=== PATIENT | male | born 1955 | race African-American/Black ===

== ENCOUNTER 2017-12-10 11:42 | Emergency (ER) | payer OTHER ==
[~2017-12-10] VITALS: Ht 195.6 cm; Wt 150.0 kg
[2017-12-10 11:47] VITALS: BP 169/79; PULSE 82; RESP 20; TEMP 97.8; O2SAT 99
--- NOTE | 2017-12-10 12:30 | PD ---
HPI Chief Complaint: Pain: Acute or Chronic Time Seen by Provider: 12:23 Travel History International Travel<30 days: No Contact w/Intl Traveler<30days: No Traveled to known affect area: No History of Present Illness HPI Patient comes in complaining of cough, short of breath for the last 4 days not improving despite increasing of his Lasix by his primary care physician. Currently states no alleviating factors, does state that his symptoms have worsened whenever he did lays completely on his back. Primary CARE physician Dr. Fernández, director of midwifery/staff midwife Dr. Bhatia Past medical history significant for cardiomyopathy with a 19% cardiac function , uses an external defibrillator. PFSH Past Medical History Cardiovascular Problems: Yes Respiratory: Yes Social History Tobacco Use: No Allergies-Medications (Allergen,Severity, Reaction): Coded Allergies: No Known Allergies (Unverified , 12/10/17) Reported Meds & Prescriptions Reported Meds & Active Scripts Active Proventil Hfa 6.7 GM Inh (Albuterol Sulfate) 90 Mcg/Act Aer 2 Puff INH Q4-6H PRN Zithromax Z-Carter (Azithromycin) 250 Mg Dspk 250 Mg PO DIRECTED 500 MG (2 tabs) day 1, then 1 tab days 2-5. Medrol Dosepak (Methylprednisolone) 4 Mg Dspk 4 Mg PO DIRECTED Per Pharmacist direction Reported Potassium Chloride ER (Potassium Chloride) 10 Meq Tab 10 Meq PO DAILY Lasix (Furosemide) 20 Mg Tab 20 Mg PO DAILY Carvedilol 12.5 Mg Tab 12.5 Mg PO BID Losartan (Losartan Potassium) 25 Mg Tab 25 Mg PO DAILY Spironolactone 25 Mg Tab 25 Mg PO DAILY Review of Systems General / Constitutional: No: Fever Eyes: No: Visual changes HENT: No: Headaches Cardiovascular: Positive: Irregular Rhythm Respiratory: Positive: Cough, Shortness of Breath Gastrointestinal: No: Abdominal Pain Genitourinary: No: Dysuria Musculoskeletal: No: Pain Skin: No Rash Neurologic: No: Weakness Psychiatric: No: Depression Endocrine: No: Polydipsia Hematologic/Lymphatic: No: Easy Bruising Physical Exam Narrative GENERAL: SKIN: Warm and dry. HEAD: Atraumatic. Normocephalic. EYES: Pupils equal and round. No scleral icterus. No injection or drainage. ENT: No nasal bleeding or discharge. Mucous membranes pink and moist. NECK: Trachea midline. No JVD. CARDIOVASCULAR: Regular rate and rhythm. RESPIRATORY: No accessory muscle use. Clear to auscultation. Breath sounds equal bilaterally. GASTROINTESTINAL: Abdomen soft, non-tender, nondistended. MUSCULOSKELETAL: Extremities without clubbing, cyanosis, or edema. No obvious deformities. NEUROLOGICAL: Awake and alert. No obvious cranial nerve deficits. Motor grossly within normal limits. Five out of 5 muscle strength in the arms and legs. Normal speech. PSYCHIATRIC: Appropriate mood and affect; insight and judgment normal. Data Data Last Documented VS Orders Orders Electrocardiogram (12/10/17 12:04) Complete Blood Count With Diff (12/10/17 12:04) Basic Metabolic Panel (Bmp) (12/10/17 12:04) Ckmb (Isoenzyme) Profile (12/10/17 12:04) Troponin I (12/10/17 12:04) Chest, Single Ap (12/10/17 12:04) B-Type Natriuretic Peptide (12/10/17 12:27) Influenzae A/B Antigen (12/10/17 12:27) CKMB (12/10/17 12:37) CKMB% (12/10/17 12:37) Methylprednisolone So Succ Inj (Solumedr (12/10/17 15:00) Albuterol-Ipratropium Neb (Duoneb Neb) (12/10/17 15:00) Ct Pulmonary Angiogram (12/10/17 14:55) Iohexol 350 Inj (Omnipaque 350 Inj) (12/10/17 15:26) Ed Discharge Order (12/10/17 17:12) Labs Laboratory Tests Test 12/10/17 12:37 White Blood Count 3.8 TH/MM3 Red Blood Count 4.49 MIL/MM3 Hemoglobin 14.2 GM/DL Hematocrit 39.8 % Mean Corpuscular Volume 88.7 FL Mean Corpuscular Hemoglobin 31.7 PG Mean Corpuscular Hemoglobin Concent 35.7 % Red Cell Distribution Width 15.0 % Platelet Count 222 TH/MM3 Mean Platelet Volume 9.8 FL Neutrophils (%) (Auto) 58.1 % Lymphocytes (%) (Auto) 24.6 % Monocytes (%) (Auto) 9.7 % Eosinophils (%) (Auto) 6.5 % Basophils (%) (Auto) 1.1 % Neutrophils # (Auto) 2.2 TH/MM3 Lymphocytes # (Auto) 0.9 TH/MM3 Monocytes # (Auto) 0.4 TH/MM3 Eosinophils # (Auto) 0.2 TH/MM3 Basophils # (Auto) 0.0 TH/MM3 CBC Comment DIFF FINAL Differential Comment Blood Urea Nitrogen 24 MG/DL Creatinine 1.24 MG/DL Random Glucose 96 MG/DL Calcium Level 9.0 MG/DL Sodium Level 141 MEQ/L Potassium Level 4.1 MEQ/L Chloride Level 108 MEQ/L Carbon Dioxide Level 25.3 MEQ/L Anion Gap 8 MEQ/L Estimat Glomerular Filtration Rate 72 ML/MIN Total Creatine Kinase 140 U/L Creatine Kinase MB 1.3 NG/ML Troponin I LESS THAN 0.02 NG/ML B-Type Natriuretic Peptide 45 PG/ML MDM Medical Decision Making Medical Screen Exam Complete: Yes Emergency Medical Condition: Yes Medical Record Reviewed: Yes Interpretation(s) EKG shows atrial fibrillation with controlled ventricular rate, no evidence of any ST elevation RI Differential Diagnosis Pneumonia versus PTX versus bronchospasm versus pulmonary edema Narrative Course Chest x-ray negative for any pneumonia, pleural effusion, or pneumothorax. Flu test negative, CBC did not show any leukocytosis or anemia at this present time. No electrolyte abnormalities on complete metabolic profile, troponin negative, beta natruretic peptide was negative. Currently no major findings to explain the patient's dyspnea. Will obtain a CT chest to rule out pericardial effusion versus PE. CT chest showed no evidence of PE, no evidence of pericardial effusion, no evidence of pneumonia. Patient shows only evidence of bronchospasm on clinical evaluation therefore will treat the patient has a bronchitis causing bronchospasm and will DC home Diagnosis Primary Impression: Bronchospasm with bronchitis, acute Patient Instructions: Acute Bronchitis (ED), Bronchospasm (ED), General Instructions Scripts Albuterol 6.7 GM Inh (Proventil Hfa 6.7 GM Inh) 90 Mcg/Act Aer 2 PUFF INH Q4-6H Y for SHORTNESS OF BREATH, #1 INHALER 0 Refills Prov: Ab Brito MD 12/10/17 Azithromycin (Zithromax Z-Carter) 250 Mg Dspk 250 MG PO DIRECTED for Infection, #1 DSPK 0 Refills 500 MG (2 tabs) day 1, then 1 tab days 2-5. Prov: Ab Brito MD 12/10/17 Methylprednisolone Dosepak (Medrol Dosepak) 4 Mg Dspk 4 MG PO DIRECTED, #1 DSPK 0 Refills Per Pharmacist direction Prov: Ab Brito MD 12/10/17 Disposition: 01 DISCHARGE HOME Condition: Stable Ab Brito MD Dec 10, 2017 12:29
[2017-12-10 13:00] LABS: AUTOMATED NEUTROPHIL # 2.2 TH/MM3 (1.8-7.7); BASOPHIL % 1.1 % (0.0-2.0); EOSINOPHIL # 0.2 TH/MM3 (0-0.4); EOSINOPHIL % 6.5 % (0.0-4.0); HEMATOCRIT 39.8 % (39.0-51.0); HEMOGLOBIN 14.2 GM/DL (13.0-17.0); LYMPH % 24.6 % (9.0-44.0); LYMPHOCYTE # 0.9 TH/MM3 (1.0-4.8); MEAN CELL VOLUME 88.7 FL (80.0-100.0); MEAN CORPUSCULAR HEMOGLOBIN 31.7 PG (27.0-34.0); MEAN CORPUSCULAR HGB CONC 35.7 % (32.0-36.0); MEAN PLATELET VOLUME 9.8 FL (7.0-11.0); MONO % 9.7 % (0.0-8.0); MONOCYTE # 0.4 TH/MM3 (0-0.9); NEUT % 58.1 % (16.0-70.0); PLATELET COUNT 222 TH/MM3 (150-450); RED BLOOD COUNT 4.49 MIL/MM3 (4.50-5.90); WHITE BLOOD COUNT 3.8 TH/MM3 (4.0-11.0)
--- NOTE | 2017-12-10 13:14 | RADRPT ---
EXAM DATE/TIME: 12/10/2017 12:55 [facility] COMPARISON: No previous studies available for comparison. INDICATIONS : Chest pain today, short of breath, coughing MEDICAL HISTORY : Cardiovascular disease. wears life vest since Aug 2017 SURGICAL HISTORY : None. ENCOUNTER: Initial ACUITY: 1 day PAIN SCORE: 7/10 LOCATION: Bilateral chest FINDINGS: A single view of the chest demonstrates the lungs to be symmetrically aerated without evidence of mas s, infiltrate or effusion. The cardiomediastinal contours are unremarkable. Osseous structures are intact. CONCLUSION: No acute disease. John Aguilar MD on December 10, 2017 at 13:11 Board Certified Radiologist. This report was verified electronically.
[2017-12-10 13:20] LABS: BICARBONATE 25.3 MEQ/L (21.0-32.0); BLOOD UREA NITROGEN 24 MG/DL (7-18); CHLORIDE 108 MEQ/L (98-107); CREATININE 1.24 MG/DL (0.60-1.30); GLOMERULAR FILTRATION RATE 72 ML/MIN (>89); GLUCOSE,RANDOM 96 MG/DL (74-106); SODIUM (NA) 141 MEQ/L (136-145)
[2017-12-10 13:25] LABS: TROPONIN I LESS THAN 0.02 NG/ML (0.02-0.05)
[2017-12-10] MEDS ORDERED: FURO1TAB62 PO (13:43)
[2017-12-10] MEDS ORDERED: SPIR25TA PO (13:43)
[2017-12-10] MEDS ORDERED: CARV12.52 PO (13:43)
[2017-12-10] MEDS ORDERED: LOSA25TA PO (13:43)
[2017-12-10] MEDS ORDERED: POTA10TA2 PO (13:43)
[2017-12-10 14:21] VITALS: BP 130/80; PULSE 70; RESP 20; O2SAT 98
[2017-12-10] MEDS ORDERED: methylPREDNISolone SOD SUCC 125 MG/2 ML VIAL IV PUSH ONE (15:00)
[2017-12-10] MEDS ORDERED: IOHEXOL 350 MG/ML 10 ML VIAL (for RAD DIAG) IVCONTRAST ONE (15:26)
[2017-12-10] MEDS: RESP: ALBUTEROL 2.5 MG/IPRATROPIUM 0.5 MG NEB (SCH) INH ×2 (15:33→15:34)
--- NOTE | 2017-12-10 15:40 | RADRPT ---
EXAM DATE/TIME: 12/10/2017 15:19 [facility] COMPARISON: No previous studies available for comparison. INDICATIONS : SOB, evaluate for PE. Back pain. IV CONTRAST: 75 cc Omnipaque 350 (iohexol) IV RADIATION DOSE: 23.17 CTDIvol (mGy) MEDICAL HISTORY : Congestive hearrt failure. Cardiovascular disease A Fib SURGICAL HISTORY : None. ENCOUNTER: Initial ACUITY: 3 weeks PAIN SCALE: 7/10 LOCATION: chest TECHNIQUE: Volumetric scanning of the chest was performed using a pulmonary embolism protocol MIP images were re constructed. Using automated exposure control and adjustment of the mA and/or kV according to patien t size, radiation dose was kept as low as reasonably achievable to obtain optimal diagnostic quality images. DICOM format image data is available electronically for review and comparison. Follow-up recommendations for detected pulmonary nodules are based at a minimum on nodule size and pa tient risk factors according to Fleischner Society Guidelines. FINDINGS: PULMONARY ARTERIES: No filling defects are seen in the pulmonary arteries through the segmental level. LUNGS: There is no consolidation or pneumothorax . No concerning pulmonary nodule is visualized. PLEURAE: There is no pleural thickening or pleural effusion. MEDIASTINUM: There is good visualization of the great vessels of the middle mediastinum. No evidence of mediastin al or hilar adenopathy/mass. MUSCULOSKELETAL: Moderate degenerative changes. MISCELLANEOUS: The colon sits anterior to the liver ,a normal variant CONCLUSION: Negative for central pulmonary emboli Raheem De La Torre MD FACR on December 10, 2017 at 15:36 Board Certified Radiologist. This report was verified electronically.
[2017-12-10] MEDS ORDERED: MEDR4PAK PO (16:44)
[2017-12-10] MEDS ORDERED: ALBU6.7H INH (16:44)
[2017-12-10] MEDS ORDERED: ZITHTAB PO (16:44)
--- NOTE | 2017-12-12 00:22 | EKG ---
Date Performed: 12/10/2017 Time Performed: 12:09:22 PTAGE: 62 years EKG: POSSIBLE JUNCTIONAL RHYTHM WITH OCCASIONAL SUPRAVENTRICULAR PREMATURE COMPLEXES SEPTAL MYOC ARDIAL INFARCTION ABNORMAL ECG NO PREVIOUS TRACING DOCTOR: Agustín Miranda Interpretating Date/Time 12/12/2017 00:22:17
== END 2017-12-10 19:04 | disposition home or self-care (01) ==
LOC: NEPC 11:42
DX: J20.9 Acute bronchitis, unspecified (principal); I48.91 Unspecified atrial fibrillation; I42.9 Cardiomyopathy, unspecified
CPT/HCPCS: 71045; 71275; 80048; 82550; 82552; 83880; 84484; 85025; 87804; 93005; 94664; 96374; 99285; J2930; Q9967

== ENCOUNTER 2018-10-10 10:57 | Inpatient (IN) ==
--- NOTE | 2018-10-05 13:46 | MH ---
cc: Chris Vincent MD DATE OF ADMISSION: 10/10/2018 ADMITTING DIAGNOSIS: Osteoarthritic degeneration, right hip, now being admitted for right total hip arthroplasty. HISTORY OF PRESENT ILLNESS: This pleasant 63-year-old male is being admitted today for a right total knee arthroplasty due to severe painful osteoarthritic degeneration of the right hip. PAST MEDICAL HISTORY: He has a history of sleep apnea and heart disease for which he does take Eliquis, which is stopped before surgery, and losartan and carvedilol. PREVIOUS SURGICAL HISTORY: Prostatectomy. REVIEW OF SYSTEMS: Noncontributory. FAMILY HISTORY: Noncontributory. SOCIAL HISTORY: He does not smoke or drink. ALLERGIES: NO KNOWN ALLERGIES. PHYSICAL EXAMINATION: He is a 63-year-old male, well-developed, well-nourished, oriented x3, complaining of pain in his right hip. VITAL SIGNS: Blood pressure 140/90, pulse 84 and regular, respirations 16, temperature 97.7, pulse oximetry 97% on room air. HEENT: Eyes PERRLA, EOMI. Ears, nose, mouth clear. NECK: Supple. LUNGS: Clear. HEART: Regular rate. ABDOMEN: Soft, positive bowel sounds, nontender. EXTREMITIES: Reveals his right hip to have decreased range of motion. He is neurovascularly intact to his toes. IMPRESSION: Severe painful osteoarthritic degeneration, right hip. PLAN: Admission for right total hip arthroplasty today. The patient was given prescription for postoperative pain and anticoagulation control in the office today. Chris Vincent MD JRR/ns , 01:26 PM , 01:34 PM
[2018-10-10] MEDS ORDERED: Sodium Chlor 0.9% Inj 500 ML IV.CONT ONE (11:45)
[2018-10-10] MEDS ORDERED: Chlorhexidine Gluconate 2% 1 Pack (2 Cloths) TOPICAL ONE (11:45)
[2018-10-10] MEDS ORDERED: Metoprolol Tartrate 25 MG Tablet PO ONE (11:45)
[2018-10-10] MEDS ORDERED: Chlorhexidine 4% Topical 120 APPLIC/120 ML Bottle TOPICAL SCH (12:00)
[2018-10-10] MEDS ORDERED: SODIUM CHLOR 0.9% IV.SIG SCH (12:30)
[2018-10-10] MEDS ORDERED: TRANEXAMIC ACID IV.SIG SCH (12:30)
[2018-10-10] MEDS ORDERED: ceFAZolin 2 GM IV; once IV.SIG ONE (12:30)
[2018-10-10] MEDS ORDERED: Sodium Chlor 0.9% Inj 80 ML, Bupivacaine Liposo PF 1.3% Inj 20 ML, Bupivacaine PF 0.25%... P-ARTICULR SCH ×3 (13:00)
[2018-10-10] MEDS ORDERED: ceFAZolin 2 GM IV; once IV.SIG SCH (13:00)
[2018-10-10] MEDS ORDERED: ceFAZolin Inj 500 MG Vial ONE (13:01)
[2018-10-10] MEDS ORDERED: Potassium Chloride 10 MEQ ER Capsule PO PRN (13:20)
[2018-10-10] MEDS ORDERED: Furosemide 20 MG Tablet PO PRN (13:20)
[2018-10-10] MEDS ORDERED: Bisacodyl 10 MG Supp RECTAL PRN (13:22)
[2018-10-10] MEDS ORDERED: Post-op Orders (for Pharmacy) OTHER STA (13:22)
[2018-10-10] MEDS ORDERED: Morphine Inj 4 MG/ML Vial IV.PUSH PRN (13:22)
--- NOTE | 2018-10-10 13:25 | P.DCO ---
- Diagnosis (1) Status post total replacement of right hip Status: Acute - Physical Therapy Order: Evaluate and treat, Improve ambulation, Strength and gait training - Home Health Nursing Order: Medical education - Case Management Consult Case Management Consult-Home Health: Yes - Certification I have seen patient oRdrigo Nunes JR on 10/10/18. My clinical findings support the need for the requested home health care services because: Limited ability to care for self, High risk of falls I certify that my clinical findings support that this patient is homebound because: Post-op weakness, Unsteady gait/balance, Unsafe to leave home unassisted
[2018-10-10] MEDS ORDERED: Tranexamic Acid Inj 1,000 MG in Sodium Chlor 0.9% Inj 100 ML IV.SIG SCH (15:30)
[2018-10-10] MEDS ORDERED: fentaNYL Citrate Inj 100 MCG/2 ML Ampul ONE (16:50)
--- NOTE | 2018-10-10 17:56 | P.BOP ---
- Preoperative Diagnosis (1) Osteoarthritis of right hip - Postoperative Diagnosis (1) Status post total replacement of right hip Date of procedure: 10/10/18 Procedure: Right Total Hip Arthroplasty Implants: see implant record Anesthesia: GETA Surgeon: Chris Vincent MD [employer] Supervisor: Galilea Raza Estimated blood loss (mL): 400 Urine output (mL): 0 (no clemente) Pathology: none sent Condition: stable Disposition: PACU
[2018-10-10] MEDS ORDERED: *Meperidine Inj 25 MG/ML Vial PERIprocedural Use ONLY ONE (17:58)
[2018-10-10] MEDS ORDERED: Morphine Inj 4 MG/ML Vial ONE (17:59)
--- NOTE | 2018-10-10 18:40 | XR ---
EXAM DATE: 10/10/2018 6:24 PM EST AGE/SEX: 63 years / Male INDICATIONS: Post op right hip replacement. CLINICAL DATA: This is the patient's initial encounter. Patient reports that signs and symptoms have been present for 1 day and indicates a pain score of Nonresponsive. MEDICAL/SURGICAL HISTORY: None. None. COMPARISON: No prior exams available for comparison. FINDINGS: Postoperative right total hip replacement. Normal alignment. Air in soft tissues. CONCLUSION: Right hip replacement. No complications identified. Electronically signed by: Danilo Cleary MD 10/10/2018 6:39 PM EST
--- NOTE | 2018-10-10 19:23 | P.CON ---
History of Present Illness Service: [facility] Consult date: 10/10/18 Requesting Physician: Jesus Vincent Reason for Consult: Cardiac history Primary Care Provider: Sergo Fernández MD Chief Complaint: "I'm cold" History of Present Illness: Patient is a 63-year-old male with past medical history of congestive heart failure, A. fib, HTN, prostate cancer with prostatectomy, sleep apnea who initially came in to the hospital for right hip replacement secondary to osteoarthritis. Patient is status post right hip total arthroplasty by Dr. Vincent. Patient seen and examined today. Reports he is cold. Otherwise, he is doing well. States pain is manageable. Denies any chest pain, palpitations , headaches, dizziness. Denies any nausea, vomiting. Denies shortness of breath or dyspnea. Review of Systems All other systems reviewed negative except as stated in HPI [facility] - History History Provided By: Patient - Medical History Medical History: Medical History (Last Reviewed 10/10/18 @ 19:07 by AKIN Tsai) Afib CHF (congestive heart failure) CKD (chronic kidney disease) COPD (chronic obstructive pulmonary disease) Cardiomyopathy Ejection fraction < 50% H/O prostate cancer High cholesterol Hypertension Wears glasses - Surgical History Surgical History: Surgical History (Last Reviewed 10/10/18 @ 19:07 by AKIN Tsai) H/O cardiac catheterization H/O prostatectomy History of total replacement of both shoulder joints Hx of appendectomy - Family History Family History: Family History (Last Updated 10/10/18 @ 19:08 by AKIN Tsai) Mother Other Family history unknown - Social History I have reviewed the patient's Social History: Yes - Tobacco History Second Hand Smoke Exposure: No Smoking Status: Never smoker - Alcohol History How Often Do You Have a Drink Containing Alcohol: Monthly or less - Substance Use History Substance History: No History of Abuse - Travel History Recent Travel in the [place] Within the Last 8 Weeks: No Recent Travel Out of the Country Within the Last 8 Weeks: No Medications and Allergies Active Medications: Active Medications Hydrocodone Bitart/Acetaminophen (Pledger 7.5/325) 1 tab PO Q4H PRN PRN Reason: PAIN LESS THAN 5 ON SCALE Hydrocodone Bitart/Acetaminophen (Pledger 7.5/325) 2 tab PO Q6H PRN PRN Reason: PAIN SCALE 5 TO 10 Al Hydroxide/Mg Hydroxide (Milk Of Magnesia Liq) 30 ml PO BID PRN PRN Reason: Mild Constipation Albuterol (Albuterol Neb (Prn)) 2.5 mg NEB TID NEB PRN PRN Reason: SHORTNESS OF BREATH Amlodipine Besylate (Norvasc) 2.5 mg PO DAILY [place] Apixaban (Eliquis) 2.5 mg PO BID [facility] Atorvastatin Calcium (Lipitor) 20 mg PO HS [facility] Bisacodyl (Dulcolax Supp) 10 mg RECTAL DAILY PRN PRN Reason: SEVERE CONSITIPATION Carvedilol (Coreg) 12.5 mg PO BID [facility] Chlorhexidine Gluconate (Hibiclens 4% Topical) 1 applicatio TOPICAL ONCE [facility] Stop: 10/14/18 11:59 Furosemide (Lasix) 20 mg PO EVERY OTHER DAY PRN PRN Reason: fluid retention Hydrochlorothiazide (Hydrodiuril) 25 mg PO EVERY OTHER DAY [facility] Lactated Ringer's (Lr 1000 Ml Inj) 1,000 mls @ 30 mls/hr IV.CONT .Q24H ONE Stop: 10/11/18 11:44 Sodium Chloride (Ns Inj) 500 mls @ 30 mls/hr IV.CONT .[id number] ONE Stop: 10/11/18 04:24 Cefazolin Sodium/Dextrose (Ancef 2 Gm Premix Inj) 2 gm in 50 mls @ 100 mls/hr IV.SIG FLASH [employer]ANGING [employer] [facility] Stop: 10/10/18 23:00 Lactated Ringer's (Lr 1000 Ml Inj) 1,000 mls @ 80 mls/hr IV.CONT .[id number] [facility] Last Admin: 10/10/18 18:10 Dose: 80 mls/hr Tranexamic Acid 1,000 mg/ (Sodium Chloride) 110 mls @ 200 mls/hr IV.SIG ONCE [facility] Stop: 10/10/18 21:30 Cefazolin Sodium/Dextrose (Ancef 1 Gm Premix Inj) 1 gm in 50 mls @ 100 mls/hr IV.SIG Q6H [facility] Stop: 10/11/18 09:29 Lactulose (Lactulose Liq) 30 ml PO DAILY PRN PRN Reason: SEVERE CONSITIPATION Losartan Potassium (Cozaar) 100 mg PO EVERY OTHER DAY [facility] Miscellaneous (Pill Splitter) 1 each OTHER UNSCH PRN PRN Reason: PILL SPLITTER Morphine Sulfate (Morphine Inj) 2 mg IV.PUSH Q3H PRN PRN Reason: BREAKTHROUGH PAIN Multivitamins/Minerals (Theragran-M) 1 tab PO BID [facility] Stop: 12/09/18 20:59 Ondansetron HCl (Zofran Odt) 4 mg PO Q6H PRN PRN Reason: NAUSEA OR VOMITING Potassium Chloride (Kcl) 10 meq PO EVERY OTHER DAY PRN PRN Reason: with lasix Senna/Docusate Sodium (Karin-Colace) 1 tab PO BID [facility] Sennosides (Senokot) 17.2 mg PO BID PRN PRN Reason: Moderate Constipation Sodium Chloride (Ns Flush) 2 ml IV.FLUSH BID [facility] Sodium Chloride (Ns Flush) 2 ml IV.FLUSH PRN PRN PRN Reason: FLUSH AFTER USING IV ACCESS Allergies Allergy/AdvReac Type Severity Reaction Status Date / Time No Known Allergies Allergy Verified 10/10/18 11:53 Home Medications Medication Instructions Recorded Confirmed Type albuterol sulfate 2.5 mg INHALATION TID PRN 09/26/18 10/10/18 History amlodipine 2.5 mg PO DAILY 09/26/18 10/10/18 History apixaban [Eliquis] 5 mg PO BID 09/26/18 10/10/18 History atorvastatin 20 mg PO HS 09/26/18 10/10/18 History carvedilol 12.5 mg PO BID 09/26/18 10/10/18 History furosemide 20 mg PO EVERY OTHER DAY PRN 09/26/18 10/10/18 History hydrochlorothiazide 25 mg PO EVERY OTHER DAY 09/26/18 10/10/18 History losartan 100 mg PO EVERY OTHER DAY 09/26/18 10/10/18 History potassium chloride 10 meq PO EVERY OTHER DAY PRN 09/26/18 10/10/18 History Physical Exam Vital signs: Vital Signs 10/10/18 17:50 10/10/18 18:00 10/10/18 18:15 Temperature 98.1 F Pulse Rate 59 L 60 56 L Respiratory Rate 15 13 17 Blood Pressure 114/57 L 114/76 95/54 L Pulse Oximetry 100 99 98 10/10/18 18:28 10/10/18 18:30 10/10/18 18:45 Temperature Pulse Rate 59 L 59 L Respiratory Rate 13 17 17 Blood Pressure 101/64 96/47 L Pulse Oximetry 97 97 10/10/18 19:00 Temperature Pulse Rate 61 Respiratory Rate 17 Blood Pressure 94/54 L Pulse Oximetry 100 Intake & Output 10/10/18 10/10/18 10/11/18 06:59 18:59 06:59 Intake Total 1400 / 1400 Output Total 400 / 400 Balance 1000 / 1000 Weight 157.6 kg Intake: Anesthesia Amount 1400 / 1400 Output: Estimated Blood Loss 400 / 400 Other: Weight On Admission 157.6 kg Narrative: GENERAL: This is a well-nourished, well-developed AA patient, in no apparent distress. SKIN: Warm and dry. HEENT: Normocephalic. Pupils equal round and reactive. Nose without bleeding. Airway patent. NECK: Trachea midline. CARDIOVASCULAR: Bradycardia 58 without murmurs, gallops, or rubs. RESPIRATORY: Clear to auscultation. No wheezes, rales, or rhonchi. GASTROINTESTINAL: Abdomen soft, non-tender, nondistended. Bowel Sounds normoactive x4. MUSCULOSKELETAL: Extremities without clubbing, cyanosis. Intact sensation bilaterally. Right hip incision area Dsg CDI NEUROLOGICAL: Awake and alert. No focal neuro deficit. Moves all extremities. Normal speech. Results - Labs Labs: Laboratory Results - last 24 hr 10/10/18 12:05 Blood Type O Positive Blood Type Recheck Required Antibody Screen Negative - Imaging Impressions Hip X-Ray 10/10/18 13:22 CONCLUSION: Right hip replacement. No complications identified. Assessment and Plan - Plan Patient is a 63-year-old male with past medical history of congestive heart failure, A. fib, HTN, prostate cancer with prostatectomy, sleep apnea who initially came in to the hospital for right hip replacement secondary to osteoarthritis. Status post right hip replacement, by Dr. Vincent 10/10/18 Osteo arthritis -Physical therapy eval and treat as per surgery -Pain management with bowel regimen Atrial fibrillation, rate controlled HTN Heart failure, not in exacerbation Cardiomyopathy -Continue with home medication Eliquis 2.5 mg twice daily, Norvasc 2.5 daily , Coreg 12.5 twice daily, losartan 100 mg every other day -Continue HydroDIURIL and Lasix as needed for fluid retention -Monitor BP trend, HR -Patient has hx of HF and cardiomyopathy, HR of 55-60 may be ideal for patient. May need to decrease dose of BB if <50HR is noted. He follows with Dr. Bhatia in the outpatient Sleep apnea -Did not report any COPD as part of his history, patient reports he is non- smoker -May use home CPAP machine if available. May use O2 nasal cannula keep O2 sat greater than 90% -No wheezing noted on exam CKD ST 2 -Avoid nephrotoxins DVT prop Eliquis Code Status: Full code Discussed Condition With: Patient, nursing Discharge Planning: DC disposition by primary team
[2018-10-10] MEDS ORDERED: *morphine SULFATE 4 MG/ML PERIprocedure ONLY ONE (19:51)
--- NOTE | 2018-10-10 20:39 | MP ---
cc: Chris Vincent MD DATE OF OPERATION: 10/10/2018 PREOPERATIVE DIAGNOSIS: Osteoarthritic degeneration, right hip. POSTOPERATIVE DIAGNOSIS: Osteoarthritic degeneration, right hip. PROCEDURE PERFORMED: Right total hip arthroplasty using Aesculap components, size 58 cup with a size 16 stem with a lateralized neck and 36 ceramic head. No cement utilized. SURGEON: Chris Vincent MD MACHINE BUILDER: AKIN Claire ANESTHESIA: General intubation. DESCRIPTION OF PROCEDURE: The patient was brought to the Operating Room, where after successful induction of spinal anesthesia was placed on the operating room table in the left lateral decubitus position. The right hip, thigh and leg were prepped and draped in the usual manner. A posterolateral approach was then utilized by making an incision over the proximal portion of the femur lateral aspect, carried across the greater trochanter, carried posterior in a curved incision toward the buttock. The incision was carried down through the subcutaneous tissue, through the fibers of the tensor fascia zackery and gluteus ward to expose the greater trochanteric bursa. This was then removed by sharp and blunt dissection. The hip was then internally rotated to expose the insertions of the short external rotators of the hip and were incised at their insertion into the greater trochanter and reflected posterior to protect the sciatic nerve. These were held with a Charnley retractor to better visualize the hip joint. The capsule was identified and removed by sharp dissection. The hip was then dislocated by internal rotation and flexion of the hip. The femoral calcar was then measured using the trial components for the appropriate length cut of the neck using an oscillating saw. After the cut was made the head was removed. The acetabulum was then approached and measured, the acetabulum reamed with the acetabular reamers. Next, the femoral calcar was approached by first inserting a canal finder followed by rigid reamers, followed by a cookie-cutter to the appropriate size, in this case being a #15. The broach was left in place and a planer used to plane the calcar to a smooth finish. The broach was then removed. The trial components were then inserted into place, the hip reduced, found to track smoothly with no evidence of subluxation or dislocation. All trial components were removed. The wound was irrigated copiously with antibiotic solution and Water Pik. The actual components were then inserted and impacted into place using Aesculap components, size 58 cup with a size 16 stem with a lateralized neck and 36 ceramic head. No cement utilized. An extra hour was needed for both surgical dissection and closure as the patient was morbidly obese and the incision length was 18 inches. Once the prosthesis was inserted and impacted in place and reduced, full range of motion was appreciated with no instability. Then, 120 mL of a mixture of Exparel, normal saline and 0.25% Marcaine plain was injected around the incision site, staying away from the sciatic nerve for extra pain control. Sciatic nerve was identified and protected throughout the procedure. The deep fascia was approximated with running #2 Quill. Subcutaneous tissue approximated using interrupted and running 2-0 and 3-0 Quill and Monocryl in layers. Prineo dressing applied along with abduction pillow, splint and knee immobilizer. No drain utilized. Estimated blood loss was 400 mL. Sponge and suture counts were correct. The patient tolerated the procedure well and left the operating room in satisfactory condition. AKIN Heredia, was present during the entire procedure to include patient positioning as well as the procedure itself. The medical necessity of a nurse practitioner physician assistant surgery was indicated in this case due to the surgical complexity of the case itself. During the case, the surgical corsetier was working the back table while my surgical aide NICKI was directly assisting me. MD HERSON Babcock/alverto , 05:11 PM , 05:18 PM
[2018-10-10] MEDS: ceFAZolin 1 GM Premix Inj 1 GM/50 ML PIGGYBACK IV.SIG SCH (22:21)
[2018-10-10] MEDS: Multivitamin/Minerals Therapeutic Tablet PO SCH (22:21)
[2018-10-10] MEDS: Carvedilol 12.5 MG Tablet PO SCH (22:22)
[2018-10-10] MEDS: Senna/Docusate Sodium 8.6/50 MG Tablet PO SCH (22:53)
[2018-10-11] MEDS: ceFAZolin 1 GM Premix Inj 1 GM/50 ML PIGGYBACK IV.SIG SCH ×2 (04:15→08:44)
[2018-10-11 05:36] LABS: Hematocrit 36.4 % (39.0-51.0); Hemoglobin 12.3 gm/dL (13.0-17.0)
[2018-10-11] MEDS: Carvedilol 12.5 MG Tablet PO SCH ×2 (08:43→21:39)
[2018-10-11] MEDS: Multivitamin/Minerals Therapeutic Tablet PO SCH ×2 (08:43→21:39)
[2018-10-11] MEDS: Senna/Docusate Sodium 8.6/50 MG Tablet PO SCH ×2 (08:44→21:39)
[2018-10-11] MEDS ORDERED: amLODIPine 5 MG Tablet PO SCH (09:00)
--- NOTE | 2018-10-11 09:50 | P.PNOP ---
Subjective Interval history: Patient basically comfortable today. No complaints. Physical Exam Vital signs: Vital Signs 10/10/18 17:50 10/10/18 18:00 10/10/18 18:15 Temperature 98.1 F Pulse Rate 59 L 60 56 L Respiratory Rate 15 13 17 Blood Pressure 114/57 L 114/76 95/54 L Pulse Oximetry 100 99 98 10/10/18 18:28 10/10/18 18:30 10/10/18 18:45 Temperature Pulse Rate 59 L 59 L Respiratory Rate 13 17 17 Blood Pressure 101/64 96/47 L Pulse Oximetry 97 97 10/10/18 19:00 10/10/18 19:45 10/10/18 20:00 Temperature 98.0 F 97.5 F L Pulse Rate 61 65 68 Respiratory Rate 17 15 16 Blood Pressure 94/54 L 116/54 L 119/58 L Pulse Oximetry 100 97 93 L 10/11/18 00:00 10/11/18 04:00 10/11/18 08:00 Temperature 97.9 F 98.0 F 98.1 F Pulse Rate 63 63 60 Respiratory Rate 16 16 18 Blood Pressure 108/53 L 111/55 L 101/51 L Pulse Oximetry 92 L 95 93 L Intake & Output 10/10/18 10/11/18 10/11/18 18:59 06:59 18:59 Intake Total 1400 / 1400 100 / 100 Output Total 400 / 400 400 / 400 Balance 1000 / 1000 -300 / -300 Weight 157.6 kg 126.9 kg Intake: IV 100 / 100 Ancef 1 GM Premix Inj 1 gm In 100 / 100 50 ml @ 100 mls/hr IV.SIG Q6H [facility] Rx#:[id number] Anesthesia Amount 1400 / 1400 Output: Urine 400 / 400 Estimated Blood Loss 400 / 400 Other: Weight On Admission 157.6 kg - Constitutional no acute distress Results - Labs CBC & Chem 7: 10/11/18 04:34 Laboratory Results - last 24 hr 10/10/18 10/11/18 12:05 04:34 Hgb 12.3 L Hct 36.4 L Blood Type O Positive Blood Type Recheck Required Antibody Screen Negative - Imaging Impressions Hip X-Ray 10/10/18 13:22 CONCLUSION: Right hip replacement. No complications identified. Assessment and Plan - Problem List (1) Status post total replacement of right hip Code(s): Z96.641 - Presence of right artificial hip joint Status: Acute - Attending Attestation Attending Attestation: Sitting up in chair at present. Neurovascularly intact to toes. No calf tenderness. Plan for the patient to continue physical therapy today and be discharged to home tomorrow with home health care and physical therapy.
--- NOTE | 2018-10-11 11:48 | P.PN ---
Subjective Interval history: Follow-up visit for right hip replacement, A. fib and sleep apnea. Patient seen and examined resting bed comfortably in no acute distress. He denies any fevers, chills, nausea, vomiting, diarrhea, cough or shortness of breath. Some pain, tried to hold off on getting pain meds. but states he could not go without any medication due to pain therefore did try medications, he reports relief with these. Physical Exam Vital signs: Vital Signs 10/10/18 17:50 10/10/18 18:00 10/10/18 18:15 Temperature 98.1 F Pulse Rate 59 L 60 56 L Respiratory Rate 15 13 17 Blood Pressure 114/57 L 114/76 95/54 L Pulse Oximetry 100 99 98 10/10/18 18:28 10/10/18 18:30 10/10/18 18:45 Temperature Pulse Rate 59 L 59 L Respiratory Rate 13 17 17 Blood Pressure 101/64 96/47 L Pulse Oximetry 97 97 10/10/18 19:00 10/10/18 19:45 10/10/18 20:00 Temperature 98.0 F 97.5 F L Pulse Rate 61 65 68 Respiratory Rate 17 15 16 Blood Pressure 94/54 L 116/54 L 119/58 L Pulse Oximetry 100 97 93 L 10/11/18 00:00 10/11/18 04:00 10/11/18 08:00 Temperature 97.9 F 98.0 F 98.1 F Pulse Rate 63 63 60 Respiratory Rate 16 16 18 Blood Pressure 108/53 L 111/55 L 101/51 L Pulse Oximetry 92 L 95 93 L Intake & Output 10/10/18 10/11/18 10/11/18 18:59 06:59 18:59 Intake Total 1400 / 1400 100 / 100 Output Total 400 / 400 400 / 400 Balance 1000 / 1000 -300 / -300 Weight 157.6 kg 126.9 kg Intake: IV 100 / 100 Ancef 1 GM Premix Inj 1 gm In 100 / 100 50 ml @ 100 mls/hr IV.SIG Q6H [facility] Rx#:[id number] Anesthesia Amount 1400 / 1400 Output: Urine 400 / 400 Estimated Blood Loss 400 / 400 Other: Weight On Admission 157.6 kg Narrative: GENERAL: This is a well-nourished, well-developed AA patient, in no apparent distress. SKIN: Warm and dry. HEENT: Normocephalic. Pupils equal/round.Airway patent. NECK: Trachea midline. CARDIOVASCULAR: Regular rate and rhythm without murmurs, gallops, or rubs. RESPIRATORY: Clear to auscultation. No wheezes, rales, or rhonchi. GASTROINTESTINAL: Abdomen soft, non-tender, nondistended. Bowel Sounds normoactive x4. MUSCULOSKELETAL: Extremities without clubbing, cyanosis. Right lateral incision well approximated with no visible drainage. RLE sensation intact, + movement, capillary refill <3sec. NEUROLOGICAL: Awake and alert. No focal neuro deficit. Moves all extremities. Normal speech. Results - Labs CBC & Chem 7: 10/11/18 04:34 Laboratory Results - last 24 hr 10/10/18 10/11/18 12:05 04:34 Hgb 12.3 L Hct 36.4 L Blood Type O Positive Blood Type Recheck Required Antibody Screen Negative - Imaging Impressions Hip X-Ray 10/10/18 13:22 CONCLUSION: Right hip replacement. No complications identified. Assessment and Plan - Plan Patient is a 63-year-old male with past medical history of congestive heart failure, A. fib, HTN, prostate cancer with prostatectomy, sleep apnea who initially came in to the hospital for right hip replacement secondary to osteoarthritis. Status post right hip replacement, by Dr. Vincent 10/10/18 Osteo arthritis -Physical therapy eval and treat as per surgery -Pain management with bowel regimen - Likely DC tomorrow Atrial fibrillation, rate controlled HTN Heart failure, not in exacerbation Cardiomyopathy -Continue with home Eliquis, home dose 5mg BID, if okay with ortho increase to home dose - Continue Norvasc 2.5 daily, Coreg 12.5 twice daily, losartan 100 mg every other day -Continue HydroDIURIL and Lasix as needed for fluid retention -Monitor BP trend, HR -Patient has hx of HF and cardiomyopathy, HR of 55-60 may be ideal for patient. He follows with Dr. Bhatia in the outpatient Sleep apnea -Did not report any COPD as part of his history, patient reports he is non- smoker -May use home CPAP machine if available. May use O2 nasal cannula keep O2 sat greater than 90% -lungs clear CKD ST 2 -Avoid nephrotoxins DVT prop Eliquis Discussed Condition With: Patient, RN and . Discharge Planning: DC tomorrow.
[2018-10-12 05:21] LABS: Hematocrit 35.3 % (39.0-51.0); Hemoglobin 11.9 gm/dL (13.0-17.0)
--- NOTE | 2018-10-12 08:28 | P.PNOP ---
Subjective Interval history: Patient comfortable today with minimal complaints of pain. He states he has some numbness around both thighs for a while which he attributes to his lumbar radiculopathy for which he will eventually require surgical intervention according to the patient. He is fine now. Physical Exam Vital signs: Vital Signs 10/11/18 11:28 10/11/18 12:00 10/11/18 16:00 Temperature 97.3 F L 98 F Pulse Rate 59 L 64 Respiratory Rate 18 Blood Pressure 104/59 L 117/66 Pulse Oximetry 97 95 10/11/18 17:34 10/11/18 19:35 10/11/18 23:06 Temperature 98.1 F 98.4 F Pulse Rate 70 72 Respiratory Rate 18 Blood Pressure 121/66 127/67 Pulse Oximetry 96 97 Intake & Output 10/11/18 10/12/18 10/12/18 18:59 06:59 18:59 Intake Total 360 / 360 Output Total 600 / 600 Balance -240 / -240 Weight 126.9 kg Intake: Oral 360 / 360 Output: Urine 600 / 600 Other: # Voids 600 Date of Last Bowel Movement 10/11/18 # Bowel Movements 0 - Constitutional no acute distress Results - Labs CBC & Chem 7: 10/12/18 04:43 Laboratory Results - last 24 hr 10/12/18 04:43 Hgb 11.9 L Hct 35.3 L Assessment and Plan - Problem List (1) Status post total replacement of right hip Code(s): Z96.641 - Presence of right artificial hip joint Status: Acute - Attending Attestation Attending Attestation: Patient in bed at present time. He is neurovascular intact to his toes. No calf tenderness. Plan is for patient to be discharged home today with home health care after his class and therapy today. Patient has appointment in the office next week for follow-up.
[2018-10-12] MEDS ORDERED: amLODIPine 5 MG Tablet PO SCH (09:00)
[2018-10-12] MEDS ORDERED: hydroCHLOROthiazide 25 MG Tablet PO SCH (09:00)
[2018-10-12] MEDS: Carvedilol 12.5 MG Tablet PO SCH (09:17)
[2018-10-12] MEDS: Senna/Docusate Sodium 8.6/50 MG Tablet PO SCH (09:18)
--- NOTE | 2018-10-12 10:09 | MD ---
cc: Chris Vincent MD DATE OF DISCHARGE: ADMITTING DIAGNOSIS: Osteoarthritic degeneration, right hip. DISCHARGE DIAGNOSIS: Osteoarthritic degeneration, right hip. SUMMARY IS FOLLOWS: A pleasant 63-year-old male who was admitted on 10/10/2018 at which time he underwent a right total hip arthroplasty. At that time, he received a course of prophylactic IV antibiotics and started on anticoagulation therapy within 23 hours. He continued to improve, tolerating food and fluid well, p.o. pain medications on discharge and physical therapy. He was discharged on second postoperative day in good condition to home with home health care and physical therapy and appointment for followup in the office for a recheck. Chris Vincent MD JRR/ld , 08:33 AM , 08:38 AM
--- NOTE | 2018-10-12 10:37 | P.PN ---
Subjective Interval history: Follow-up visit for right hip replacement, AFaizan silva anticoagulated on Eliquis. Patient seen and examined sitting up in bed in no acute distress. He denies any fevers, chills, nausea, vomiting, diarrhea, cough or shortness of breath. He reports pain is much better controlled. Plans for discharge home today. Physical Exam Vital signs: Vital Signs 10/11/18 11:28 10/11/18 12:00 10/11/18 16:00 Temperature 97.3 F L 98 F Pulse Rate 59 L 64 Respiratory Rate 16 18 18 Blood Pressure 104/59 L 117/66 Pulse Oximetry 97 95 10/11/18 17:34 10/11/18 19:35 10/11/18 23:06 Temperature 98.1 F 98.4 F Pulse Rate 70 72 Respiratory Rate 18 19 18 Blood Pressure 121/66 127/67 Pulse Oximetry 96 97 10/12/18 08:00 Temperature 98.3 F Pulse Rate 72 Respiratory Rate 20 Blood Pressure 135/64 Pulse Oximetry 96 Intake & Output 10/11/18 10/12/18 10/12/18 18:59 06:59 18:59 Intake Total 360 / 360 Output Total 600 / 600 Balance -240 / -240 Weight 126.9 kg Intake: Oral 360 / 360 Output: Urine 600 / 600 Other: # Voids 600 Date of Last Bowel Movement 10/11/18 # Bowel Movements 0 Narrative: GENERAL: This is a well-nourished, well-developed AA patient, in no apparent distress. SKIN: Warm and dry. HEENT: Normocephalic. Pupils equal/round.Airway patent. NECK: Trachea midline. CARDIOVASCULAR: Regular rate and rhythm without murmurs, gallops, or rubs. RESPIRATORY: Clear to auscultation. No wheezes, rales, or rhonchi. GASTROINTESTINAL: Abdomen soft, non-tender, nondistended. Bowel Sounds normoactive x4. MUSCULOSKELETAL: Extremities without clubbing, cyanosis. Right lateral incision well approximated with no visible drainage, trace edema. RLE sensation intact, + movement, capillary refill <3sec. NEUROLOGICAL: Awake and alert. No focal neuro deficit. Moves all extremities. Normal speech. Results - Labs CBC & Chem 7: 10/12/18 04:43 Laboratory Results - last 24 hr 10/12/18 04:43 Hgb 11.9 L Hct 35.3 L Assessment and Plan - Plan Patient is a 63-year-old male with past medical history of congestive heart failure, A. fib, HTN, prostate cancer with prostatectomy, sleep apnea who initially came in to the hospital for right hip replacement secondary to osteoarthritis. Status post right hip replacement, by Dr. Vincent 10/10/18 Osteo arthritis -Physical therapy eval and treat as per surgery -Pain management with bowel regimen -Plans for discharge today Atrial fibrillation, rate controlled HTN Heart failure, not in exacerbation Cardiomyopathy - Eliquis 5mg BID, dose for a.fib prophylaxis, discussed with - Continue Norvasc 2.5 daily, Coreg 12.5 twice daily, losartan 100 mg every other day -Continue HydroDIURIL and Lasix as needed for fluid retention -Monitor BP trend, HR -Patient has hx of HF and cardiomyopathy, HR of 55-60 may be ideal for patient. He follows with Dr. Bhatia in the outpatient Sleep apnea -Did not report any COPD as part of his history, patient reports he is non- smoker -May use home CPAP machine if available. May use O2 nasal cannula keep O2 sat greater than 90% -Lungs clear CKD ST 2 -Avoid nephrotoxins DVT prop Eliquis Discussed Condition With: Patient, RN and Discharge Planning: DC today
[2018-10-12 12:33] VITALS: RESP 18
[2018-10-12] MEDS: Multivitamin/Minerals Therapeutic Tablet PO SCH (12:35)
[2018-10-12 14:02] VITALS: BP 105/58; PULSE 74; TEMP 98.4; O2SAT 94
== END 2018-10-12 17:30 | disposition home health service (06) ==
LOC: HSDC 10:57 → HSDI 13:34 → EDSTATUS 14:00 → N06 20:00
PROVIDERS: ADMIT Surgery; ATTEND Surgery